=== PATIENT | female | born 1960 | race Two or more races ===

== ENCOUNTER 2016-10-03 07:22 | Observation (INO) | payer OTHER ==
[~2016-10-03] VITALS: Ht 157.5 cm; Wt 67.5 kg
[2016-10-03 09:35] LABS: HEMATOCRIT 38.1 % (36.0-46.0); MCH 30.7 PG (29.0-34.0); MCHC 33.1 G/DL (30.0-36.0); MCV 92.9 FL (83-99); MEAN PLAT.VOLUME 10.1 uM^3 (9.5-12.4); PLATELET COUNT 205 K/uL (156-360); RBC DIS.WIDTH-CV 11.8 % (11.8-14.6); RBC DIS.WIDTH-SD 40.6 % (39-53); WHITE BLOOD COUNT 5.8 K/uL (4.1-10.2)
[2016-10-03 09:39] LABS: BILIRUBIN NEGATIVE; BLOOD NEGATIVE; COLOR STRAW ((YELLOW)); GLUCOSE (STRIP) NEGATIVE; KETONES NEGATIVE; LEUKOCYTES NEGATIVE; NITRITE NEGATIVE; PROTEIN (STRIP) NEGATIVE; SPECIFIC GRAVITY 1.003 (1.000-1.030); UROBILINOGEN 0.2 MG/DL (0.2-1.0)
[2016-10-03 09:41] LABS: ADD MIUA? NO
[2016-10-03 09:49] LABS: CHLORIDE 110 mEq/L (99-109); POTASSIUM 3.8 mEq/L (3.7-5.4); SODIUM 142 mEq/L (136-147)
[2016-10-03 09:51] LABS: GLUCOSE 85 mg/dL (70-99)
[2016-10-03 09:52] LABS: ANION GAP 9 MEQ/L (2-14)
[2016-10-03 09:55] LABS: GFR ESTIMATE (CALCULATED) > 59 mL/min/
[2016-10-03 09:56] LABS: UREA NITROGEN (BUN) 12 mg/dL (9-23)
[2016-10-03 09:58] LABS: TROP-I INTERPRETATION NEGATIVE; TROPONIN-I < 0.01 ng/mL (0.0-0.30)
[2016-10-03 11:34] VITALS: BP 165/77
[2016-10-03 15:11] VITALS: BP 169/89
[2016-10-03 17:05] VITALS: BP 161/86
[2016-10-03 19:24] VITALS: BP 139/88
[2016-10-03 23:56] VITALS: BP 132/76
[2016-10-04 04:00] VITALS: BP 146/82
[2016-10-04 06:14] LABS: HDL CHOLESTEROL 53 MG/DL (Desirable>=50); LDL CHOLESTEROL 169 mg/dL (Desirable<100); NON-HDL CHOLESTEROL 182 mg/dL (Desirable<160); TOTAL CHOLESTEROL 235 mg/dL (Desirable<200); TRIGLYCERIDES 66 MG/DL (Normal: <150)
[2016-10-04 07:05] VITALS: BP 148/72
[2016-10-04 07:48] LABS: Estimated Average Glucose 105 mg/dL (70-123); HEMOGLOBIN A1c (GLYCOHEMOGLOB) 5.3 % HGB (Below 5.7)
[2016-10-04] MEDS ORDERED: AMLODIPINE BESYL5 MG PO (08:44)
[2016-10-04] MEDS ORDERED: ATORVASTATIN CA40 MG PO (08:44)
[2016-10-04] MEDS ORDERED: AMOX TR-K CLV1 EAC4 PO (08:44)
[2016-10-04] MEDS ORDERED: PREDNISONE10 MG PO (08:46)
[2016-10-04 11:31] LABS: LYME DISEASE SEROLOGY SCREEN NEGATIVE (NEGATIVE)
== END 2016-10-04 10:00 | disposition home or self-care (01) ==
LOC: EME 07:22 → EDOF 10:05 → 5WEST 10:05 → EDOF 10:10 → 5WEST 11:30
PROVIDERS: Hospitalist; Nurse Practitioner Family
DX: I16.9 Hypertensive crisis, unspecified (principal); G51.0 Bell's palsy
CPT/HCPCS: 70450; 70551; 71020; 80048; 80061; 81003; 83036; 84484; 85027; 86618; 93005; 93306; 99281; 99285; G0378; J1885; J7030; J7512

== ENCOUNTER 2017-08-09 15:32 | Emergency (ER) | payer OTHER ==
[~2017-08-09] VITALS: Ht 162.6 cm; Wt 64.2 kg
[~2017-08-09 15:32] MED LIST: AMLODIPINE BESYL5 MG PO; AMOX TR-K CLV1 EAC4 PO; ATORVASTATIN CA40 MG PO; PREDNISONE10 MG PO
[2017-08-09] MEDS ORDERED: DELTASONE20 M1 PO (15:51)
[2017-08-09] MEDS ORDERED: VALTREX1000 MG PO (15:57)
[2017-08-09 18:42] VITALS: BP 131/84
== END 2017-08-09 18:43 | disposition home or self-care (01) ==
LOC: EME 15:32
DX: G51.0 Bell's palsy (principal); R51 Headache; F17.200 Nicotine dependence, unspecified, uncomplicated
CPT/HCPCS: 70450; 99281; 99284